=== PATIENT | female | born 1990 ===

== ENCOUNTER → 2023-07-13 | Outpatient (CLI) | payer OTHER | END | disposition home or self-care (01) | LOC: MAMO-SONO 08:18 | PROVIDERS: ATTEND Family Medicine | DX: Z12.31 Encounter for screening mammogram for malignant neoplasm of breast (principal); Z80.3 Family history of malignant neoplasm of breast; N63.10 Unspecified lump in the right breast, unspecified quadrant; N60.11 Diffuse cystic mastopathy of right breast; N60.12 Diffuse cystic mastopathy of left breast; Z12.39 Encounter for other screening for malignant neoplasm of breast ==

== ENCOUNTER 2023-08-12 13:46 | Outpatient (CLI) | payer OTHER | END 2023-08-15 14:21 | disposition home or self-care (01) | LOC: SONOGRAMA 13:46 | PROVIDERS: ATTEND Surgery | DX: N60.12 Diffuse cystic mastopathy of left breast (principal) ==

== ENCOUNTER 2024-09-03 12:08 | Inpatient (IN) | payer OTHER ==
[~2024-09-03] VITALS: Ht 157.5 cm; Wt 90.7 kg
[2024-09-23] VITALS (9 sets, daily range): BP systolic 104–136; BP diastolic 56–76
[2024-09-23] MEDS ORDERED: RINGERS SOLUTION,LACTATED 1,000 ML IV SCH (04:15)
[2024-09-23] MEDS ORDERED: MORPHINE SULFATE 4 MG/ML CARTRIDGE IV ONE (04:15)
[2024-09-23] MEDS ORDERED: SYNTHROID125 MCG PO (05:02)
[2024-09-23] MEDS ORDERED: OBSTETRIX EC C1 EAC1 PO (05:02)
[2024-09-23 05:11] LABS: HEMATOCRIT 36.9 % (36.0-45.00); HEMOGLOBIN 12.5 g/dL (12.0-15.00); MEAN CELL VOLUME 90.8 fL (80.00-100.00); MEAN CORPUSCULAR HEMOGLOBIN 30.8 pg (27.00-32.0); PLATELET COUNT 255 K/uL (150-450); RED BLOOD COUNT 4.06 M/uL (4.00-6.00); RED CELL DISTRIBUTION WIDTH 13.5 % (11.5-14.5)
[2024-09-23 05:26] LABS: INR < 0.93; PARTIAL THROMBOPLASTIN TIME 26.4 SECONDS (22.0-34.0); PROTHROMBIN TIME 10.2 SECONDS (9.0-11.5)
[2024-09-23 05:30] LABS: ALBUMIN 2.9 gm/dL (3.4-5.0); BILIRUBIN TOTAL 0.4 mg/dL (0.3-1.2); CALCIUM 8.9 mg/dL (8.5-10.1); CREATININE SERUM 0.7 mg/dL (0.55-1.02); GFR 96.37; GLOBULINA 3.8 G/DL (2.4-3.5); POTASSIUM 4.14 mEq/L (3.5-5.1); TOTAL PROTEIN 6.7 gm/dL (6.4-8.2)
[2024-09-23] MEDS ORDERED: CITRIC ACID/SODIUM CITRATE 30 ML BLIST.PACK PO ONE (05:30)
[2024-09-23] MEDS ORDERED: MEPERIDINE HCL/PF 25 MG/ML VIAL IV STA (06:59)
[2024-09-23] MEDS ORDERED: CHLORHEXIDINE GLUCONATE 120 ML BOTTLE TOP SCH (09:45)
[2024-09-23] MEDS ORDERED: OXYTOCIN 1,000 ML IV SCH (09:45)
[2024-09-23] MEDS ORDERED: METHYLERGONOVINE MALEATE 0.2 MG/ML AMPUL IM STA (10:36)
[2024-09-23] MEDS ORDERED: LIDOCAINE HCL 1% 10ML VIAL IJ ONE (10:45)
[2024-09-23] MEDS ORDERED: ERYTHROMYCIN BASE OPHT 1GM EACH TUBE OP ONE (10:45)
[2024-09-23] MEDS ORDERED: OxyCODONE HCL 5 MG TABLET (ROXICODONE) PO SCH (12:00)
[2024-09-23] MEDS ORDERED: ACETAMINOPHEN 500 MG GEL..CAP PO SCH (12:00)
[2024-09-23] MEDS ORDERED: KETOROLAC TROMETHAMINE 10 MG TABLET PO SCH (12:00)
[2024-09-23] MEDS ORDERED: FAMOtidine 20 MG TABLET PO SCH (21:00)
[2024-09-23] MEDS ORDERED: TERCONAZOLE 45 GM TUBE VAG SCH (21:00)
[2024-09-24 00:01] VITALS: BP 116/74
[2024-09-24 06:54] LABS: HEMATOCRIT 33.7 % (36.0-45.00); HEMOGLOBIN 11.4 g/dL (12.0-15.00); MEAN CELL VOLUME 90.5 fL (80.00-100.00); MEAN CORPUSCULAR HEMOGLOBIN 30.7 pg (27.00-32.0); MEAN CORPUSCULAR HGB CONC 33.9 g/dl (32.0-36.0); PLATELET COUNT 285 K/uL (150-450); RED BLOOD COUNT 3.73 M/uL (4.00-6.00); RED CELL DISTRIBUTION WIDTH 13.8 % (11.5-14.5)
[2024-09-24 08:30] VITALS: BP 117/84
[2024-09-24 14:13] VITALS: BP 114/76
[2024-09-24 15:47] VITALS: BP 108/73
[2024-09-25] VITALS: BP 123/78
[2024-09-25 08:52] VITALS: BP 127/81
== END 2024-09-25 12:32 | disposition home or self-care (01) | DRG 807 ==
LOC: OB/GYN 09-23 04:08 → LDR 09-23 04:08 → OB/GYN 09-23 10:07 → SURH 10-06 13:00
PROVIDERS: ADMIT Obstetrics & Gynecology Maternal & Fetal Medicine; ATTEND Obstetrics & Gynecology Maternal & Fetal Medicine
PROC: 10E0XZZ Delivery of Products of Conception, External Approach (ICD-10-PCS; principal; 2024-09-23)
PROC: 0KQM0ZZ Repair Perineum Muscle, Open Approach (ICD-10-PCS; 2024-09-23)
PROC: 4A1HXCZ Monitoring of Products of Conception, Cardiac Rate, External Approach (ICD-10-PCS; 2024-09-23)
DX: O70.1 Second degree perineal laceration during delivery (principal); O69.81X0 Labor and delivery complicated by cord around neck, without compression, not applicable or unspecified; Z37.0 Single live birth; Z3A.38 38 weeks gestation of pregnancy